=== PATIENT | female | born 1985 | race Caucasian/White ===

== ENCOUNTER 2019-10-02 13:35 | Emergency (ER) | payer MEDICAID, OTHER ==
[2019-10-02 14:20] VITALS: BP 110/76
--- NOTE | 2019-10-02 14:48 | UC ---
Back Pain HPI - History of Current Complaint Chief Complaint: UCBackPain Stated Complaint: BACK INJURY Time Seen by Provider: 10/02/19 14:34 Pain Intensity: 10 - Allergies/Home Medications Allergies/Adverse Reactions: Allergies Allergy/AdvReac Type Severity Reaction Status Date / Time Penicillins Allergy Rash Verified 10/02/19 14:12 Home Medications: Home Medications Sertraline* [Zoloft*] 1 tab PO DAILY 10/02/19 [History Confirmed 10/02/19] PMH/Surg Hx/FS Hx/Imm Hx - Surgical History Surgical History: Yes Surgery Procedure, Year, and Place: tubal ligation 11/2007 - Social History Alcohol Use: None Substance Use Type: None Smoking Status (MU): Never Smoked Tobacco Physical Exam Vital Signs: Initial Vital Signs Temp 97.6 F 10/02/19 14:14 Pulse 95 10/02/19 14:14 Resp 16 10/02/19 14:14 BP 110/76 10/02/19 14:14 Pulse Ox 99 10/02/19 14:14 Discharge ED - Discharge Plan Referrals: Panchito Recinos NP [Primary Care Provider] -
--- NOTE | 2019-10-02 14:49 | UC ---
Back Pain HPI - HPI Summary HPI Summary: Ms. Quinn slipped on the ice and landed on her left buttock on Saturday. Today is Saturday and she said continued pain and instructed is gotten worse and extended up her back on the left side little bit. It hurts when she twists, bends over or moves too quickly. She's had a few problems with her back in the past but usually resolves in a day or so with ibuprofen. She's been taking ibuprofen and Tylenol for the 3 days. She has had no change in her bowel or bladder and no weakness. - History of Current Complaint Chief Complaint: UCBackPain Stated Complaint: BACK INJURY Time Seen by Provider: 10/02/19 14:34 Hx Obtained From: Patient Onset/Duration: Sudden Onset Timing: Constant Severity Initially: Moderate Severity Currently: Moderate Pain Intensity: 10 Character: Aching Aggravating Factor(s): Movement, Lifting, Bending, Walking Alleviating Factor(s): Rest Associated Signs And Symptoms: Positive: Negative - Allergies/Home Medications Allergies/Adverse Reactions: Allergies Allergy/AdvReac Type Severity Reaction Status Date / Time Penicillins Allergy Rash Verified 10/02/19 14:12 Home Medications: Home Medications Sertraline* [Zoloft*] 1 tab PO DAILY 10/02/19 [History Confirmed 10/02/19] PMH/Surg Hx/FS Hx/Imm Hx Previously Healthy: Yes - Surgical History Surgical History: Yes Surgery Procedure, Year, and Place: tubal ligation 11/2007 - Social History Alcohol Use: None Substance Use Type: None Smoking Status (MU): Never Smoked Tobacco Review of Systems All Other Systems Reviewed And Are Negative: Yes Motor: Positive: Decreased ROM Musculoskeletal: Positive: Decreased ROM Physical Exam - Summary Physical Exam Summary: She was nontoxic in appearance with stable vital signs. She hops up to get on top of the examining table without any apparent difficulty. Triage Information Reviewed: Yes Appearance: Well-Appearing, No Pain Distress Vital Signs: Initial Vital Signs Temp 97.6 F 10/02/19 14:14 Pulse 95 10/02/19 14:14 Resp 16 10/02/19 14:14 BP 110/76 10/02/19 14:14 Pulse Ox 99 10/02/19 14:14 Vital Signs Reviewed: Yes ENT: Positive: Normal ENT inspection Neck exam: Normal Musculoskeletal Exam: Other - Negative straight leg raise she is tender in the left paralumbar and sciatic area. Neurological Exam: Normal Back Pain Course/Dx - Course Course Of Treatment: I think she is a mild low back strain. There is no evidence that this involves discs her bones and I will not image. I will treat her with continued nonsteroidals, Flexeril for muscle relaxer and [place] for the next couple of nights to help her get a good night sleep and heal well. - Differential Dx/Diagnosis Provider Diagnosis: Low back strain Discharge ED - Sign-Out/Discharge Documenting (check all that apply): Patient Departure All imaging exams completed and their final reports reviewed: No Studies - Discharge Plan Condition: Stable Disposition: HOME Patient Education Materials: Low Back Strain (ED) Referrals: Panchito Recinos [facility] [Primary Care Provider] - - Billing Disposition and Condition Condition: STABLE Disposition: Home
== END 2019-10-02 15:09 | disposition home or self-care (01) ==
LOC: UCEAST 13:35
DX: S39.012A Strain of muscle, fascia and tendon of lower back, initial encounter (principal); Z88.0 Allergy status to penicillin; W00.2XXA Other fall from one level to another due to ice and snow, initial encounter; Y92.9 Unspecified place or not applicable
CPT/HCPCS: 99212; G0463